=== PATIENT | female | born 1995 | race African-American/Black ===

== ENCOUNTER → 2022-09-11 09:26 | Outpatient (CLI) | payer OTHER, SELFPAY ==
--- NOTE | 2022-09-17 08:53 | PM.PFT.1 ---
Pulmonary Function Test Referral & Results Date Patient Seen: 09/11/22 Requesting provider: Dash Ross Results: The spirometry demonstrates an FVC of 4.01 L which is 106% of predicted. The FEV1 was measured at 3.39 L which is 105% of predicted. The FEV1/FVC ratio was 84 which is 99% of predicted. Following the administration of bronchodilator there was a 38% improvement in FEF 25-75%. Interpretation: This study demonstrates normal forced spirometry No lung volumes or diffusing capacity were performed
== END ==
PROVIDERS: Referring Provider Chiropractor; Visit Provider Chiropractor
DX: R06.02 Shortness of breath (principal); Z87.891 Personal history of nicotine dependence; E58 Dietary calcium deficiency
CPT/HCPCS: 36415; 71046; 82310; 94060

== ENCOUNTER → 2022-09-11 09:29 | Outpatient (CLI) | payer OTHER, SELFPAY ==
--- NOTE | 2022-09-11 | DI.RAD.S_ITS ---
PROCEDURE: XR CHEST 2V INDICATIONS: BREATH SHORTNESS TECHNIQUE: 2 views of the chest were acquired. COMPARISON: None. FINDINGS: Surgical changes and devices: None. Lungs and pleura: Lungs are clear. No pleural effusions or pneumothorax. Mediastinum: Mediastinal contours are normal. Heart size is normal. Bones and chest wall: No suspicious bony abnormalities. Soft tissues appear unremarkable. IMPRESSION: No acute cardiopulmonary abnormality. Dictated by: Bernard Stanley M.D. on 09/11/2022 at 12:45 Approved by: Bernard Stanley M.D. on 09/11/2022 at 12:45
[2022-09-11 12:04] LABS: Calcium 9.5 mg/dL (8.4-10.2)
== END ==
PROVIDERS: Referring Provider Chiropractor; Visit Provider Chiropractor
DX: R06.02 Shortness of breath (principal); E58 Dietary calcium deficiency
CPT/HCPCS: 36415; 71046; 82310